=== PATIENT | female | born 1955 | race African-American/Black ===

== ENCOUNTER 2016-07-19 08:06 | Emergency (ER) | payer OTHER, MEDICAID ==
[~2016-07-19] VITALS: Ht 167.6 cm; Wt 77.0 kg
[2016-07-19] MEDS ORDERED: LISI10TA5 PO (08:23)
[2016-07-19] MEDS ORDERED: LEVO50TA8 PO (08:23)
[2016-07-19] MEDS ORDERED: ONDANSETRON HCL 4MG/2ML VIAL IV ONE (09:30)
[2016-07-19] MEDS ORDERED: FAMOTIDINE 20MG/2ML VIAL IV ONE (09:30)
[2016-07-19] MEDS ORDERED: MORPHINE SULFATE 4 MG/ML CPJ (NOT FOR IM USE) IV ONE (09:30)
[2016-07-19 10:06] VITALS: BP 117/57
== END 2016-07-19 10:08 | disposition left against medical advice (07) ==
LOC: ER 08:30
DX: R10.9 Unspecified abdominal pain (principal); Z87.19 Personal history of other diseases of the digestive system; Z91.14 Patient's other noncompliance with medication regimen
CPT/HCPCS: 99281

== ENCOUNTER 2016-07-19 10:13 | Emergency (ER) | payer OTHER, MEDICAID ==
[~2016-07-19] VITALS: Ht 162.6 cm; Wt 82.0 kg
[~2016-07-19 10:13] MED LIST: LEVO50TA8 PO; LISI10TA5 PO
[2016-07-19] MEDS ORDERED: MORPHINE SULFATE 4 MG/ML CPJ (NOT FOR IM USE) IV STA (12:37)
[2016-07-19] MEDS ORDERED: FAMOTIDINE 20MG/2ML VIAL IV STA (12:37)
[2016-07-19] MEDS ORDERED: ONDANSETRON HCL 4MG/2ML VIAL IV STA (12:37)
[2016-07-19] MEDS ORDERED: MAGNESIUM/ALUMINUM HYDROXIDE/SIMETHICONE 30ML UDC PO STA (12:37)
[2016-07-19] MEDS ORDERED: SODIUM CHLORIDE 0.9% 1,000 ML IV ONE (12:37)
[2016-07-19 13:04] LABS: BASOPHILS % 0.6 % (0.0-2.0); EOSINOPHILS % 0.3 % (0.0-5.0); HEMATOCRIT. 34.5 % (36.0-48.0); HEMOGLOBIN. 11.4 g/dL (12.0-16.0); LYMPHOCYTES % 29.9 % (20.0-50.0); MEAN CORPUSCULAR HEMOGLOBIN 29.6 pg (28.0-32.0); MEAN CORPUSCULAR VOLUME 89.8 fL (81.0-99.0); MEAN PLATELET VOLUME 7.6 fl (7.4-10.4); MONOCYTES % 8.5 % (2.0-8.0); NEUTROPHILS % 60.7 % (40.0-76.0); PLATELET 371 x1000/uL (130-400); RED BLOOD CELL COUNT 3.84 mill/uL (4.2-5.4); RED CELL DISTRIBUTION WIDTH 15.4 % (11.6-14.6); WHITE BLOOD COUNT 11.5 x1000/uL (4.5-11.0)
[2016-07-19 13:13] LABS: PROTHROMBIN TIME 10.7 sec
[2016-07-19 13:19] LABS: ALANINE AMINOTRANSFERASE 25 IU/L (13-61); ALBUMIN 3.8 g/dL (3.4-5.0); ANION GAP 15; CALCIUM 8.5 mg/dL (8.5-10.1); CARBON DIOXIDE 29 mEq/L (21-32); CHLORIDE 102 mEq/L (98-107); INDEX HEMOLYSI 1 (1-3); INDEX ICTERIC 1 (1-4); INDEX LIPEMIC 1 (1-3); LIPASE 140 IU/L (73-393); UREA NITROGEN BLOOD 15 mg/dL (7-21); eGFR > 60 mL/min (>60)
[2016-07-19 14:59] VITALS: BP 130/77
[2016-07-19] MEDS ORDERED: POTASSIUM CHLORIDE 20MEQ TABLET SR PO ONE (15:15)
[2016-07-19 15:34] LABS: CLARITY URINE TURBID (CLEAR); COLOR URINE YELLOW (YELLOW); GLUCOSE URINE NEGATIVE (NEGATIVE); KETONES URINE NEGATIVE (NEGATIVE); LEUKOCYTE ESTERASE URINE 1+ (NEGATIVE); NITRITE URINE NEGATIVE (NEGATIVE); OCCULT BLOOD URINE TRACE (NEGATIVE); PROTEIN URINE 2+ (NEGATIVE); SPECIFIC GRAVITY URINE 1.022 (1.005-1.030); UROBILINOGEN URINE 0.2 E.U./dL (0.2-1.0)
[2016-07-19 15:47] LABS: BACTERIA URINE 2+; RBC URINE 0-2 /hpf (0-2); SQUAMOUS EPITHELIAL CELL URINE 3+ /lpf (RARE/1+)
== END 2016-07-19 16:09 | disposition home or self-care (01) ==
LOC: ER 10:37
DX: N39.0 Urinary tract infection, site not specified (principal); K27.9 Peptic ulcer, site unspecified, unspecified as acute or chronic, without hemorrhage or perforation; R00.0 Tachycardia, unspecified; I10 Essential (primary) hypertension; K57.30 Diverticulosis of large intestine without perforation or abscess without bleeding; K21.9 Gastro-esophageal reflux disease without esophagitis; F10.10 Alcohol abuse, uncomplicated; E05.00 Thyrotoxicosis with diffuse goiter without thyrotoxic crisis or storm; E03.9 Hypothyroidism, unspecified; F17.210 Nicotine dependence, cigarettes, uncomplicated
CPT/HCPCS: 36415; 74176; 80053; 81001; 83690; 85025; 85610; 93005; 96361; 96374; 96375; 99285; J2270; J2405; J3490; J7030

== ENCOUNTER 2017-08-30 09:29 | Emergency (ER) | payer OTHER, MEDICAID ==
[~2017-08-30] VITALS: Ht 165.1 cm; Wt 65.0 kg
[2017-08-30 09:30] VITALS: BP 120/70
[2017-08-30] MEDS ORDERED: OLANZAPINE 10 MG/VIAL IM STA (09:51)
== END 2017-08-30 15:51 | disposition left against medical advice (07) ==
LOC: ER 14:29
DX: F10.129 Alcohol abuse with intoxication, unspecified (principal); E03.9 Hypothyroidism, unspecified; F41.9 Anxiety disorder, unspecified; I10 Essential (primary) hypertension; J45.909 Unspecified asthma, uncomplicated; R56.9 Unspecified convulsions; Z87.440 Personal history of urinary (tract) infections; Y90.9 Presence of alcohol in blood, level not specified
CPT/HCPCS: 99283

== ENCOUNTER 2018-02-16 17:38 | Emergency (ER) | payer OTHER, MEDICAID ==
[~2018-02-16] VITALS: Ht 167.6 cm; Wt 69.0 kg
[2018-02-16 18:31] VITALS: BP 127/69
[2018-02-16 20:24] LABS: BASOPHILS % 0.4 % (0.0-2.0); EOSINOPHILS % 0.6 % (0.0-5.0); HEMATOCRIT. 39.1 % (36.0-48.0); HEMOGLOBIN. 13.1 g/dL (12.0-16.0); LYMPHOCYTES % 26.4 % (20.0-50.0); MEAN CORPUSCULAR HEMOGLOBIN 30.9 pg (28.0-32.0); MEAN CORPUSCULAR VOLUME 92.3 fL (81.0-99.0); MEAN PLATELET VOLUME 8.6 fl (7.4-10.4); MONOCYTES % 10.7 % (2.0-8.0); NEUTROPHILS % 61.9 % (40.0-76.0); PLATELET 255 x1000/uL (130-400); RED BLOOD CELL COUNT 4.24 mill/uL (4.2-5.4); RED CELL DISTRIBUTION WIDTH 14.6 % (11.6-14.6)
[2018-02-16 20:33] LABS: CHLORIDE 106 mEq/L (98-107); ETHANOL BLOOD 253 mg/dL
== END 2018-02-16 20:20 | disposition left against medical advice (07) ==
LOC: ER 18:39
DX: R07.9 Chest pain, unspecified (principal); F41.9 Anxiety disorder, unspecified; J45.909 Unspecified asthma, uncomplicated; I10 Essential (primary) hypertension; E03.9 Hypothyroidism, unspecified; Z79.899 Other long term (current) drug therapy; Z87.440 Personal history of urinary (tract) infections
CPT/HCPCS: 36415; 71045; 80053; 83880; 84484; 85025; 93005; 99285; G0482

== ENCOUNTER 2018-05-17 23:52 | Emergency (ER) | payer OTHER, MEDICAID ==
[~2018-05-17] VITALS: Ht 172.7 cm; Wt 100.0 kg
[2018-05-18] MEDS ORDERED: MAGNESIUM/ALUMINUM HYDROXIDE/SIMETHICONE 30ML UDC PO ONE (01:30)
[2018-05-18] MEDS ORDERED: FAMOTIDINE 20MG TABLET PO SCH (01:30)
[2018-05-18] MEDS ORDERED: ONDANSETRON 4MG ODT PO STA (01:30)
[2018-05-18 02:03] LABS: BASOPHILS % 0.6 % (0.0-2.0); EOSINOPHILS % 1.3 % (0.0-5.0); HEMOGLOBIN. 11.9 g/dL (12.0-16.0); LYMPHOCYTES % 19.8 % (20.0-50.0); MEAN CORPUSCULAR HEMOGLOBIN 30.7 pg (28.0-32.0); MEAN CORPUSCULAR VOLUME 94.9 fL (81.0-99.0); MEAN PLATELET VOLUME 7.8 fl (7.4-10.4); MONOCYTES % 7.7 % (2.0-8.0); NEUTROPHILS % 70.6 % (40.0-76.0); PLATELET 367 x1000/uL (130-400); RED CELL DISTRIBUTION WIDTH 15.9 % (11.6-14.6)
[2018-05-18 02:13] LABS: CHLORIDE 111 mEq/L (98-107)
[2018-05-18 02:19] LABS: ETHANOL BLOOD 234 mg/dL
[2018-05-18 03:13] LABS: CLARITY URINE CLEAR (CLEAR); COLOR URINE YELLOW (YELLOW); KETONES URINE NEGATIVE (NEGATIVE); LEUKOCYTE ESTERASE URINE NEGATIVE (NEGATIVE); NITRITE URINE NEGATIVE (NEGATIVE); OCCULT BLOOD URINE NEGATIVE (NEGATIVE); PH URINE 6.5 (4.5-8.0); PROTEIN URINE NEGATIVE (NEGATIVE); UROBILINOGEN URINE 0.2 E.U./dL (0.2-1.0)
[2018-05-18 03:24] LABS: *AMPHETAMINES SCREEN URINE NEGATIVE (NEGATIVE); *BARBITURATES SCREEN URINE NEGATIVE (NEGATIVE); *BENZODIAZEPINES SCREEN URINE PRESUMTIVE POSITIVE (NEGATIVE); *COCAINE SCREEN URINE NEGATIVE (NEGATIVE)
[2018-05-18 03:25] LABS: CANNABINOID URINE SCREEN NEGATIVE (NEGATIVE); METHADONE URINE SCREEN NEGATIVE (NEGATIVE); OPIATES URINE SCREEN NEGATIVE (NEGATIVE); PHENCYCLIDINE URINE SCREEN NEGATIVE (NEGATIVE)
[2018-05-18] MEDS ORDERED: ACETAMINOPHEN 325MG TABLET PO ONE (05:00)
[2018-05-18 05:05] VITALS: BP 127/88
== END 2018-05-18 05:06 | disposition home or self-care (01) ==
LOC: ER 23:52
DX: R10.13 Epigastric pain (principal); F10.229 Alcohol dependence with intoxication, unspecified; F13.10 Sedative, hypnotic or anxiolytic abuse, uncomplicated; D72.829 Elevated white blood cell count, unspecified; F41.9 Anxiety disorder, unspecified; J45.909 Unspecified asthma, uncomplicated; I10 Essential (primary) hypertension; R56.9 Unspecified convulsions; E03.9 Hypothyroidism, unspecified; Z87.440 Personal history of urinary (tract) infections; Z79.899 Other long term (current) drug therapy; Y90.8 Blood alcohol level of 240 mg/100 ml or more
CPT/HCPCS: 36415; 80053; 80305; 81003; 83690; 85025; 93005; 99284; G0482; P9612; Q0162

== ENCOUNTER 2018-07-10 12:56 | Inpatient (IN) | payer OTHER, MEDICAID ==
[~2018-07-10] VITALS: Ht 162.6 cm; Wt 67.8 kg
[2018-07-10] VITALS: BP 151/74
[2018-07-10] MEDS ORDERED: SODIUM CHLORIDE 0.9% 1,000 ML IV ONE (13:28)
[2018-07-10] MEDS ORDERED: MORPHINE SULFATE 4 MG/ML CPJ (NOT FOR IM USE) IV STA (13:28)
[2018-07-10] MEDS ORDERED: ONDANSETRON HCL 4MG/2ML INJ IV STA (13:28)
[2018-07-10 14:51] LABS: CANNABINOID URINE SCREEN NEGATIVE (NEGATIVE); OPIATES URINE SCREEN NEGATIVE (NEGATIVE); PHENCYCLIDINE URINE SCREEN NEGATIVE (NEGATIVE)
[2018-07-10 14:52] LABS: *AMPHETAMINES SCREEN URINE NEGATIVE (NEGATIVE); *BARBITURATES SCREEN URINE NEGATIVE (NEGATIVE); *BENZODIAZEPINES SCREEN URINE PRESUMTIVE POSITIVE (NEGATIVE); *COCAINE SCREEN URINE NEGATIVE (NEGATIVE)
[2018-07-10 14:53] LABS: METHADONE URINE SCREEN NEGATIVE (NEGATIVE)
[2018-07-10 15:21] LABS: BASOPHILS % 0.3 % (0.0-2.0); EOSINOPHILS % 0.6 % (0.0-5.0); HEMATOCRIT. 32.4 % (36.0-48.0); HEMOGLOBIN. 10.8 g/dL (12.0-16.0); LYMPHOCYTES % 19.5 % (20.0-50.0); MEAN CORPUSCULAR HEMOGLOBIN 30.5 pg (28.0-32.0); MEAN CORPUSCULAR VOLUME 91.8 fL (81.0-99.0); MEAN PLATELET VOLUME 7.8 fl (7.4-10.4); MONOCYTES % 6.5 % (2.0-8.0); NEUTROPHILS % 73.1 % (40.0-76.0); PLATELET 322 x1000/uL (130-400); RED BLOOD CELL COUNT 3.53 mill/uL (4.2-5.4); RED CELL DISTRIBUTION WIDTH 15.4 % (11.6-14.6)
[2018-07-10 15:27] LABS: CHLORIDE 111 mEq/L (98-107)
[2018-07-10 15:29] LABS: INR 1.1; PROTHROMBIN TIME 10.9 sec (9.1-11.1)
[2018-07-10 15:31] LABS: ETHANOL BLOOD 172 mg/dL
[2018-07-10 15:36] LABS: T4 FREE 0.58 ng/dL (0.76-1.46)
[2018-07-10] MEDS ORDERED: LEVOTHYROXINE SODIUM 100 MCG/ VIAL IV NR (16:24)
[2018-07-10] MEDS ORDERED: LEVOTHYROXINE SODIUM 100MCG TABLET PO ONE (16:30)
[2018-07-10] MEDS ORDERED: HYDROCORTISONE SOD SUCCINATE 100 MG/2 ML VIAL IV ONE (16:45)
[2018-07-10] MEDS ORDERED: ONDANSETRON HCL 4MG/2ML INJ IV PRN (18:15)
[2018-07-10] MEDS ORDERED: HYDRALAZINE 20MG/ML VIAL IV PRN (18:15)
[2018-07-10] MEDS ORDERED: DIPHENHYDRAMINE 50MG/ML VIAL IV PRN (18:15)
[2018-07-10] MEDS ORDERED: CLONIDINE 0.1MG TABLET PO PRN (18:15)
[2018-07-10] MEDS ORDERED: NA PHOS,M-B/NA PHOS,DI-BA ENEMA 118ML PR PRN (18:15)
[2018-07-10] MEDS ORDERED: MAGNESIUM/ALUMINUM HYDROXIDE/SIMETHICONE 30ML UDC PO PRN (18:15)
[2018-07-10] MEDS ORDERED: ACETAMINOPHEN 325MG TABLET PO PRN (18:15)
[2018-07-10] MEDS ORDERED: DOCUSATE SODIUM 100MG CAPSULE PO PRN (18:15)
[2018-07-10] MEDS ORDERED: HYDROMORPHONE HCL/PF 2MG/ML CPJ IV PRN (18:15)
[2018-07-10] MEDS ORDERED: HYDROCODONE/ACETAMINOPHEN 10/325MG TABLET PO PRN (18:15)
[2018-07-10] MEDS ORDERED: IPRATROPIUM/ALBUTEROL 0.5-3(2.5)MG/3ML NEB INH PRN (18:15)
[2018-07-10] MEDS ORDERED: GUAIFENESIN 200MG/10ML SUGAR FREE UDC PO PRN (18:15)
[2018-07-10] MEDS ORDERED: ENOXAPARIN 40MG/0.4ML SYR SUBCUT NR (18:30)
[2018-07-10] MEDS: SODIUM CHLORIDE 0.9% INJ 3ML FLUSH IVF SCH (23:30)
[2018-07-11] VITALS (14 sets, daily range): BP systolic 114–164; BP diastolic 43–99
[2018-07-11 00:35] LABS: CREATINE KINASE 94 IU/L (26-192)
[2018-07-11 00:36] LABS: CREATINE KINASE MB FRACTION 1.5 ng/mL (0.5-3.6)
[2018-07-11] MEDS ORDERED: LISI-186 PO (01:37)
[2018-07-11] MEDS ORDERED: ERGO500013 PO (01:37)
[2018-07-11] MEDS ORDERED: DULO30CA51 PO (01:37)
[2018-07-11] MEDS ORDERED: LEVO75TA7 PO (01:37)
[2018-07-11] MEDS ORDERED: QUET50TA PO (01:37)
[2018-07-11] MEDS ORDERED: GABA-529 PO (01:37)
[2018-07-11] MEDS ORDERED: POTA10TA2 PO (01:59)
[2018-07-11] MEDS ORDERED: RIZA10TA28 PO (01:59)
[2018-07-11] MEDS ORDERED: METO25TA6 PO (01:59)
[2018-07-11] MEDS ORDERED: SIME80TA14 PO (01:59)
[2018-07-11] MEDS ORDERED: GARL500C PO (01:59)
[2018-07-11] MEDS ORDERED: THIA100T72 PO (01:59)
[2018-07-11] MEDS ORDERED: FLUT1DIS6 IH (01:59)
[2018-07-11] MEDS ORDERED: FOLI-43 PO (01:59)
[2018-07-11] MEDS ORDERED: CYAN100T PO (01:59)
[2018-07-11] MEDS ORDERED: FAMO-134 PO (01:59)
[2018-07-11] MEDS ORDERED: ACET325S17 PO (01:59)
[2018-07-11] MEDS ORDERED: OMEP20CA10 PO (01:59)
[2018-07-11] MEDS ORDERED: MULT1TAB63 PO (01:59)
[2018-07-11] MEDS ORDERED: PROSOL IH (01:59)
[2018-07-11] MEDS ORDERED: SUMA50TA16 PO (01:59)
[2018-07-11] MEDS ORDERED: NALO4SPR NS (01:59)
[2018-07-11] MEDS ORDERED: AMLO5TAB88 PO (01:59)
[2018-07-11] MEDS ORDERED: RIZA10TA27 PO (01:59)
[2018-07-11] MEDS ORDERED: ALBU05 IH (01:59)
[2018-07-11] MEDS ORDERED: HYDR-4001 PO (01:59)
[2018-07-11] MEDS ORDERED: ATOR40TA70 PO (01:59)
[2018-07-11] MEDS: LORAZEPAM 2MG/ML CPJ IV PRN ×2 (02:18→16:13)
[2018-07-11 06:16] LABS: CHLORIDE 111 mEq/L (98-107)
[2018-07-11 06:32] LABS: LDL CHOLESTEROL 44 mg/dL (5-100)
[2018-07-11 06:33] LABS: CREATINE KINASE 105 IU/L (26-192); HDL CHOLESTEROL 58 mg/dL (40-59)
[2018-07-11 06:37] LABS: CREATINE KINASE MB FRACTION 1.6 ng/mL (0.5-3.6)
[2018-07-11 07:04] LABS: BASOPHILS % 0.1 % (0.0-2.0); HEMATOCRIT. 32.2 % (36.0-48.0); HEMOGLOBIN. 10.7 g/dL (12.0-16.0); LYMPHOCYTES % 18.9 % (20.0-50.0); MEAN CORPUSCULAR HEMOGLOBIN 30.3 pg (28.0-32.0); MEAN CORPUSCULAR VOLUME 91.5 fL (81.0-99.0); MEAN PLATELET VOLUME 8.6 fl (7.4-10.4); MONOCYTES % 4.9 % (2.0-8.0); NEUTROPHILS % 76.1 % (40.0-76.0); PLATELET 330 x1000/uL (130-400); RED BLOOD CELL COUNT 3.52 mill/uL (4.2-5.4); RED CELL DISTRIBUTION WIDTH 15.1 % (11.6-14.6)
[2018-07-11] MEDS ORDERED: ASPIRIN 81MG EC TABLET PO SCH (09:00)
[2018-07-11] MEDS ORDERED: POTASSIUM CHLORIDE 20MEQ TABLET SR PO NR (11:00)
[2018-07-11] MEDS ORDERED: SODIUM CHLORIDE 0.9% 1,000 ML IV SCH (12:15)
[2018-07-11 15:46] LABS: BASOPHILS % 0.3 % (0.0-2.0); EOSINOPHILS % 0.4 % (0.0-5.0); HEMATOCRIT. 31.2 % (36.0-48.0); HEMOGLOBIN. 10.3 g/dL (12.0-16.0); LYMPHOCYTES % 29.1 % (20.0-50.0); MEAN CORPUSCULAR HEMOGLOBIN 30.2 pg (28.0-32.0); MEAN CORPUSCULAR VOLUME 91.5 fL (81.0-99.0); MEAN PLATELET VOLUME 8.4 fl (7.4-10.4); MONOCYTES % 9.6 % (2.0-8.0); NEUTROPHILS % 60.6 % (40.0-76.0); PLATELET 301 x1000/uL (130-400); RED BLOOD CELL COUNT 3.41 mill/uL (4.2-5.4); RED CELL DISTRIBUTION WIDTH 14.7 % (11.6-14.6)
[2018-07-11 16:02] LABS: CREATINE KINASE 127 IU/L (26-192)
[2018-07-11 16:03] LABS: CREATINE KINASE MB FRACTION 1.5 ng/mL (0.5-3.6)
[2018-07-11 16:13] LABS: T4 FREE 0.63 ng/dL (0.76-1.46)
[2018-07-11] MEDS ORDERED: ENOXAPARIN 40MG/0.4ML SYR SUBCUT SCH (21:00)
[2018-07-11] MEDS: SODIUM CHLORIDE 0.9% INJ 3ML FLUSH IVF SCH (21:38)
[2018-07-12 00:25] VITALS: BP 141/91
[2018-07-12] MEDS ORDERED: LEVOTHYROXINE SODIUM 75MCG TABLET PO SCH (07:30)
== END 2018-07-12 04:00 | disposition short-term general hospital (02) | DRG 314 ==
LOC: ER 12:56 → 5EST 16:35 → EDBEDREQ 16:37 → EDBEDREQTM 16:37 → EDBEDREQSVC 16:37 → ENRESERV 21:18 → 5EST 07-11 00:01
PROVIDERS: ADMIT Internal Medicine; ATTEND Internal Medicine
DX: I95.9 Hypotension, unspecified (principal); G93.41 Metabolic encephalopathy; J96.20 Acute and chronic respiratory failure, unspecified whether with hypoxia or hypercapnia; E46 Unspecified protein-calorie malnutrition; E03.9 Hypothyroidism, unspecified; E78.5 Hyperlipidemia, unspecified; E87.6 Hypokalemia; I10 Essential (primary) hypertension; J45.909 Unspecified asthma, uncomplicated; Z79.890 Hormone replacement therapy; Z79.899 Other long term (current) drug therapy; Z87.891 Personal history of nicotine dependence; Z68.25 Body mass index [BMI] 25.0-25.9, adult
CPT/HCPCS: 36415; 71045; 80061; 80305; 80320; 82533; 82550; 82553; 83036; 83605; 83880; 84439; 84443; 84481; 84484; 85379; 93005; 93880; 93970; 94640; 96374; 96375; 99291; J1650; J1720; J2060; J2270; J2405; J3490; J7030; J7620; G0480

== ENCOUNTER 2018-09-15 00:01 | Emergency (ER) | payer OTHER, MEDICAID ==
[~2018-09-15 00:01] MED LIST changes: +ACET325S17 PO; +ALBU05 IH; +AMLO5TAB88 PO; +ATOR40TA70 PO; +CYAN100T45 PO; +DULO30CA51 PO; +ERGO500013 PO; +FAMO-134 PO; +FLUT1DIS6 IH; +FOLI-43 PO; +GABA-529 PO; +GARL500C PO; +HYDR-4001 PO; -LEVO50TA8 PO; +LEVO75TA7 PO; +LISI-186 PO; -LISI10TA5 PO; +METO25TA6 PO; +MULT1TAB63 PO; +NALO4SPR NS; +OMEP20CA5 PO; +POTA10TA2 PO; +PROSOL IH; +QUET50TA PO; +RIZA10TA27 PO; +RIZA10TA28 PO; +SIME80TA14 PO; +SUMA50TA16 PO; +THIA100T72 PO
== END 2018-09-15 00:08 | disposition left against medical advice (07) ==
LOC: ER 00:01
DX: Z53.21 Procedure and treatment not carried out due to patient leaving prior to being seen by health care provider (principal)

== ENCOUNTER 2018-09-15 01:29 | Emergency (ER) | payer OTHER, MEDICAID ==
[~2018-09-15] VITALS: Ht 167.6 cm; Wt 66.0 kg
[2018-09-15] MEDS ORDERED: SODIUM CHLORIDE 0.9% 1,000 ML IV ONE (03:02)
[2018-09-15 03:17] LABS: BASOPHILS % 0.6 % (0.0-2.0); EOSINOPHILS % 1.9 % (0.0-5.0); HEMATOCRIT. 31.9 % (36.0-48.0); HEMOGLOBIN. 10.9 g/dL (12.0-16.0); LYMPHOCYTES % 35.7 % (20.0-50.0); MEAN CORPUSCULAR HEMOGLOBIN 31.1 pg (28.0-32.0); MEAN CORPUSCULAR VOLUME 91.1 fL (81.0-99.0); MEAN PLATELET VOLUME 8.6 fl (7.4-10.4); NEUTROPHILS % 50.8 % (40.0-76.0); PLATELET 315 x1000/uL (130-400)
[2018-09-15 03:19] LABS: CHLORIDE 112 mEq/L (98-107)
[2018-09-15 03:23] LABS: ETHANOL BLOOD 280 mg/dL
[2018-09-15 03:41] LABS: CLARITY URINE CLOUDY (CLEAR); COLOR URINE YELLOW (YELLOW); KETONES URINE TRACE (NEGATIVE); LEUKOCYTE ESTERASE URINE 2+ (NEGATIVE); NITRITE URINE NEGATIVE (NEGATIVE); OCCULT BLOOD URINE NEGATIVE (NEGATIVE); PH URINE 6.5 (4.5-8.0); PROTEIN URINE 1+ (NEGATIVE); SPECIFIC GRAVITY URINE 1.026 (1.005-1.030); UROBILINOGEN URINE 0.2 E.U./dL (0.2-1.0)
[2018-09-15 04:14] LABS: *AMPHETAMINES SCREEN URINE NEGATIVE (NEGATIVE); *BARBITURATES SCREEN URINE NEGATIVE (NEGATIVE); *BENZODIAZEPINES SCREEN URINE NEGATIVE (NEGATIVE); *COCAINE SCREEN URINE NEGATIVE (NEGATIVE); METHADONE URINE SCREEN NEGATIVE (NEGATIVE)
[2018-09-15 04:15] LABS: OPIATES URINE SCREEN NEGATIVE (NEGATIVE); PHENCYCLIDINE URINE SCREEN NEGATIVE (NEGATIVE)
[2018-09-15 04:16] LABS: CANNABINOID URINE SCREEN NEGATIVE (NEGATIVE)
[2018-09-15] MEDS ORDERED: KETOROLAC 30MG/ML VIAL IV STA (05:16)
[2018-09-15] MEDS ORDERED: CEFTRIAXONE 1 G PREMIX 50 ML IV ONE (05:45)
[2018-09-15 06:30] VITALS: BP 160/106
[2018-09-15] MEDS ORDERED: ACETAMINOPHEN WITH CODEINE 300/30MG TABLET PO STA (07:28)
== END 2018-09-15 08:10 | disposition left against medical advice (07) ==
LOC: ER 01:29
DX: J06.9 Acute upper respiratory infection, unspecified (principal); N39.0 Urinary tract infection, site not specified; R07.89 Other chest pain; J45.909 Unspecified asthma, uncomplicated; F10.129 Alcohol abuse with intoxication, unspecified; I10 Essential (primary) hypertension; Y90.8 Blood alcohol level of 240 mg/100 ml or more
CPT/HCPCS: 36415; 71045; 80053; 80305; 80320; 81003; 83690; 84484; 85025; 93005; 96365; 96375; 99284; J0696; J1885; J7030; G0480

== ENCOUNTER 2019-07-16 14:55 | Emergency (ER) | payer OTHER, MEDICAID ==
[~2019-07-16] VITALS: Ht 165.1 cm; Wt 72.3 kg
[~2019-07-16 14:55] MED LIST changes: -DULO30CA51 PO; +DULO30CA52 PO; -GARL500C PO; +GARL500C11 PO; +OMEP20CA14 PO; -OMEP20CA5 PO; -RIZA10TA28 PO; +RIZA10TA97 PO
[2019-07-16 15:02] VITALS: BP 138/79
== END 2019-07-16 15:30 | disposition left against medical advice (07) ==
LOC: ER 14:55
DX: F10.129 Alcohol abuse with intoxication, unspecified (principal); Y90.9 Presence of alcohol in blood, level not specified; I10 Essential (primary) hypertension; Z98.890 Other specified postprocedural states; Z79.899 Other long term (current) drug therapy
CPT/HCPCS: 99283